=== PATIENT | male | born 1970 | race Two or more races ===

== ENCOUNTER 2023-03-28 16:44 | Emergency (ER) | payer MEDICAID, OTHER ==
[~2023-03-28] VITALS: Ht 175.3 cm; Wt 84.0 kg
[2023-03-28] MEDS ORDERED: KETOROLAC TROMETH 60MG/2ML VIAL IM ONE (18:30)
[2023-03-28] MEDS ORDERED: IBUP-1456 PO (18:31)
[2023-03-28] MEDS ORDERED: CYCL-837 PO (18:31)
[2023-03-28 18:39] VITALS: BP 120/84
== END 2023-03-28 18:38 | disposition home or self-care (01) ==
LOC: ER 16:44
DX: M54.31 Sciatica, right side (principal); Z98.890 Other specified postprocedural states; Z79.1 Long term (current) use of non-steroidal anti-inflammatories (NSAID); Z79.899 Other long term (current) drug therapy
CPT/HCPCS: 96372; 99283; J1885

== ENCOUNTER 2023-05-20 00:31 | Emergency (ER) | payer MEDICAID ==
[~2023-05-20] VITALS: Ht 175.3 cm; Wt 83.3 kg
[~2023-05-20 00:31] MED LIST: CYCL-837 PO; IBUP-1456 PO
[2023-05-20] MEDS ORDERED: COR10OTS OT (01:45)
[2023-05-20] MEDS ORDERED: IBUP-1455 PO (01:45)
[2023-05-20 01:51] VITALS: BP 125/82; PULSE 89; RESP 18; TEMP 97.8; O2SAT 100
== END 2023-05-20 02:03 | disposition home or self-care (01) ==
LOC: ER 00:31
DX: H60.92 Unspecified otitis externa, left ear (principal); G89.29 Other chronic pain; M54.50 Low back pain, unspecified

== ENCOUNTER 2023-05-31 08:35 | Emergency (ER) | payer MEDICAID ==
[~2023-05-31] VITALS: Ht 175.3 cm; Wt 84.2 kg
[~2023-05-31 08:35] MED LIST changes: +COR10OTS OT; +IBUP-1455 PO
[2023-05-31] MEDS ORDERED: CYCL-839 PO (09:53)
[2023-05-31] MEDS ORDERED: IBUP-1454 PO (09:53)
[2023-05-31 10:00] VITALS: BP 131/63; PULSE 77; RESP 20; TEMP 97.7; O2SAT 99
[2023-05-31] MEDS ORDERED: HYDROcodone-ACET 5/325MG TAB PO ONE (10:00)
[2023-05-31] MEDS ORDERED: KETOROLAC TROMETH 60MG/2ML VIAL IM ONE (10:00)
[2023-05-31] MEDS ORDERED: DexAMETHasone SOD PHOS 10MG/1ML VIAL INJ IM ONE (10:00)
== END 2023-05-31 09:49 | disposition home or self-care (01) ==
LOC: ER 08:35
DX: M54.40 Lumbago with sciatica, unspecified side (principal); G89.29 Other chronic pain
CPT/HCPCS: 72100; 96372; 99284; J1100; J1885

== ENCOUNTER 2023-07-11 17:47 | Emergency (ER) | payer MEDICAID ==
[~2023-07-11] VITALS: Ht 175.3 cm; Wt 78.0 kg
[~2023-07-11 17:47] MED LIST changes: +CYCL-839 PO; +IBUP-1454 PO
[2023-07-11 17:55] VITALS: BP 126/75; PULSE 99; RESP 16; O2SAT 96
[2023-07-11 19:21] LABS: Urine Bacteria NONE SEEN /hpf (None Seen); Urine Blood Negative /uL (Negative); Urine Clarity Clear (Clear); Urine Color Yellow (Yellow); Urine Mucus FEW (None Seen); Urine Protein, UAD TRACE (Negative); Urine Specific Gravity 1.029 (1.001-1.035); Urine Urobilinogen Normal (Negative); Urine WBC 3 /hpf (0 - 3)
== END 2023-07-11 19:38 | disposition left against medical advice (07) ==
LOC: ER 17:47
DX: G89.29 Other chronic pain (principal); M54.50 Low back pain, unspecified; Z53.21 Procedure and treatment not carried out due to patient leaving prior to being seen by health care provider
CPT/HCPCS: 81001